=== PATIENT | female | born 1970 | race Caucasian/White ===

== ENCOUNTER 2016-10-07 10:35 | Inpatient (IN) | payer MEDICAID ==
[~2016-10-07] VITALS: Ht 160 cm; Wt 66.2 kg
[2016-10-30 13:05] VITALS: Ht 160 cm; Wt 66.2 kg
[2016-10-30 13:51] VITALS: BP_SYST 150; RESP 20; TEMP 98.2
[2016-11-04] VITALS (17 sets, daily range): BP systolic 110–157; RESP 15–20; TEMP 97.2–98.3
[2016-11-04] MEDS ORDERED: CEFAZOLIN 2,000 MG in SODIUM CHLORIDE 0.9% 100 ML IV ONE (09:25)
[2016-11-04] MEDS ORDERED: LACT RINGERS 1,000 ML IV SCH (10:00)
[2016-11-04] MEDS ORDERED: MIDAZOLAM 2 MG/2 ML INJ IV ONE (10:00)
[2016-11-04] MEDS ORDERED: LIDOCAINE 1% BUFFERED 1 ML SYR INTRADERM PRN (10:00)
[2016-11-04] MEDS ORDERED: MEPERIDINE 25 MG/ML IV PRN ×2 (10:00→13:35)
[2016-11-04] MEDS ORDERED: SUCCINYLCHOLINE 20 MG/ML VL IV ONE (11:04)
[2016-11-04] MEDS ORDERED: ONDANSETRON 4 MG VIAL IV PUSH ONE (11:04)
[2016-11-04] MEDS ORDERED: LIDOCAINE 2% SYR 5 ML IV ONE (11:04)
[2016-11-04] MEDS ORDERED: ROCURONIUM 50 MG VIAL IV ONE (11:04)
[2016-11-04] MEDS ORDERED: DILAUDID 1 MG/ML AMP IV ONE (11:04)
[2016-11-04] MEDS ORDERED: NEOSTIGMINE 10 MG/10 ML VIAL IV ONE (11:04)
[2016-11-04] MEDS ORDERED: ACETAMINOPHEN 1,000 MG/100 ML IV ONE (11:04)
[2016-11-04] MEDS ORDERED: GLYCOPYRROLATE 0.2 MG/ML VIAL IV ONE (11:04)
[2016-11-04] MEDS ORDERED: FENTANYL 100 MCG/2 ML AMP IV ONE (11:04)
[2016-11-04] MEDS ORDERED: DEXAMETHASONE 4 MG/ML VIAL IV ONE (11:04)
[2016-11-04] MEDS ORDERED: PROPOFOL 20 ML VIAL IV ONE (11:04)
[2016-11-04] MEDS ORDERED: BUPIVACA/EPI 0.5% 50ML NERVEBLOCK ONE (11:09)
[2016-11-04] MEDS ORDERED: BACITRACIN 50,000 UNITS INJ IRRIG ONE (11:09)
[2016-11-04] MEDS ORDERED: THROMBIN 5000 UNIT KIT TOPICAL ONE (11:09)
[2016-11-04] MEDS ORDERED: GELATIN SPONGE 12 CM2 TOPICAL ONE (11:09)
[2016-11-04] MEDS ORDERED: DILAUDID 1 MG/ML AMP IV PRN (13:35)
[2016-11-04] MEDS ORDERED: OXYCODONE 5 MG TAB PO PRN (13:35)
[2016-11-04] MEDS ORDERED: MORPHINE 2 MG/ML SYR IV PRN (13:35)
[2016-11-04] MEDS ORDERED: MORPHINE 4 MG/ML SYR IV PRN ×2 (13:35→14:55)
[2016-11-04] MEDS ORDERED: ONDANSETRON 4 MG VIAL IV PRN (13:35)
[2016-11-04] MEDS ORDERED: CYCLOBENZAPRINE 5 MG TAB PO PRN (14:55)
[2016-11-04] MEDS ORDERED: ACETAMINOPHEN 325 MG TAB PO PRN (14:55)
[2016-11-04] MEDS ORDERED: OXYCODONE/APAP 5/325 TAB PO PRN (14:55)
[2016-11-04] MEDS ORDERED: CHLORASEPTIC 180 ML BTL PO PRN (14:55)
[2016-11-04] MEDS ORDERED: SODIUM CHLORIDE 0.9% 1,000 ML IV SCH (14:55)
[2016-11-04] MEDS: MORPHINE 2 MG/ML SYR IV PRN ×2 (16:05→21:18)
[2016-11-04] MEDS: ONDANSETRON 4 MG VIAL IV PRN ×2 (16:05→21:18)
[2016-11-04] MEDS: OXYCODONE/APAP 5/325 TAB PO PRN ×2 (18:13→22:14)
[2016-11-04] MEDS: CEFAZOLIN 2,000 MG in SODIUM CHLORIDE 0.9% 100 ML IV SCH (19:14)
[2016-11-04] MEDS: LISINOPRIL 10 MG TAB PO SCH (21:18)
[2016-11-04] MEDS: DOCUSATE SOD 100 MG CAP PO SCH (21:18)
[2016-11-05] MEDS: OXYCODONE/APAP 5/325 TAB PO PRN ×3 (02:12→10:32)
[2016-11-05 03:24] VITALS: BP_SYST 142; RESP 16; TEMP 97.8
[2016-11-05] MEDS: CEFAZOLIN 2,000 MG in SODIUM CHLORIDE 0.9% 100 ML IV SCH (03:38)
[2016-11-05 07:14] VITALS: BP_SYST 137; RESP 16; TEMP 97.3
[2016-11-05] MEDS: LISINOPRIL 10 MG TAB PO SCH (08:19)
[2016-11-05] MEDS: DOCUSATE SOD 100 MG CAP PO SCH (08:19)
[2016-11-05 09:25] VITALS: BP_SYST 137; RESP 16; TEMP 97.3
== END 2016-11-05 11:26 | disposition home or self-care (01) | DRG 473 ==
LOC: SDS 11-04 09:33 → 5THW 11-04 15:56
PROVIDERS: ADMIT Neurological Surgery; ATTEND Neurological Surgery
PROC: 0RG2070 Fusion of 2 or more Cervical Vertebral Joints with Autologous Tissue Substitute, Anterior Approach, Anterior Column, Open Approach (ICD-10-PCS; 2016-11-04)
PROC: 0RB30ZZ Excision of Cervical Vertebral Disc, Open Approach (ICD-10-PCS; principal; 2016-11-04 11:34)
DX: M48.02 Spinal stenosis, cervical region (principal); I10 Essential (primary) hypertension; M54.12 Radiculopathy, cervical region; Z87.891 Personal history of nicotine dependence
CPT/HCPCS: 81025; 82947; 93005